=== PATIENT | female | born 1960 | race Caucasian/White ===

== ENCOUNTER 2019-03-21 17:12 | Emergency (ER) | payer MEDICAID ==
[~2019-03-21] VITALS: Ht 165.1 cm; Wt 73.0 kg
[2019-03-21] MEDS ORDERED: ONDANSETRON HCL 4MG/2ML INJ IV ONE (21:00)
[2019-03-21] MEDS ORDERED: MORPHINE SULFATE 2 MG/ML CPJ (NOT FOR IM USE) IV ONE (21:00)
[2019-03-21] MEDS ORDERED: SODIUM CHLORIDE 0.9% 1,000 ML IV ONE (21:00)
[2019-03-21] MEDS ORDERED: KETOROLAC 15MG/ML VIAL IV ONE (21:00)
[2019-03-21 21:11] LABS: BASOPHILS % 0.3 % (0.0-2.0); LYMPHOCYTES % 11.9 % (20.0-50.0); MEAN CORPUSCULAR HEMOGLOBIN 32.4 pg (28.0-32.0); MEAN CORPUSCULAR VOLUME 94.6 fL (81.0-99.0); MEAN PLATELET VOLUME 8.2 fl (7.4-10.4); MONOCYTES % 6.7 % (2.0-8.0); NEUTROPHILS % 80.1 % (40.0-76.0); PLATELET 437 x1000/uL (130-400); RED BLOOD CELL COUNT 3.39 mill/uL (4.2-5.4); RED CELL DISTRIBUTION WIDTH 13.7 % (11.6-14.6)
[2019-03-21 21:16] LABS: CHLORIDE 102 mEq/L (98-107)
[2019-03-21 21:17] LABS: PROTHROMBIN TIME 10.2 sec (9.6-11.0)
[2019-03-21 23:51] LABS: CLARITY URINE CLEAR (CLEAR); COLOR URINE YELLOW (YELLOW); KETONES URINE NEGATIVE (NEGATIVE); LEUKOCYTE ESTERASE URINE NEGATIVE (NEGATIVE); NITRITE URINE NEGATIVE (NEGATIVE); OCCULT BLOOD URINE 2+ (NEGATIVE); PH URINE 5.5 (4.5-8.0); PROTEIN URINE TRACE (NEGATIVE); SPECIFIC GRAVITY URINE 1.008 (1.005-1.030); UROBILINOGEN URINE 0.2 E.U./dL (0.2-1.0)
[2019-03-22 01:00] VITALS: BP 141/60
== END 2019-03-22 01:53 | disposition home or self-care (01) ==
LOC: ER 21:00
DX: R10.0 Acute abdomen (principal); N83.202 Unspecified ovarian cyst, left side; R19.7 Diarrhea, unspecified
CPT/HCPCS: 36415; 74176; 80053; 81003; 83690; 84484; 85025; 85610; 96361; 96374; 96375; 99284; J1885; J2270; J2405; J7030; Z7610

== ENCOUNTER 2021-03-19 18:16 | Inpatient (IN) | payer MEDICAID, OTHER ==
[~2021-03-19] VITALS: Ht 162.6 cm; Wt 79.4 kg
[2021-03-19] MEDS ORDERED: NITROGLYCERIN 0.4MG TABLET SL SL PRN (20:15)
[2021-03-19 21:05] LABS: BASOPHILS % 1.2 % (0.0-2.0); EOSINOPHILS % 5.4 % (0.0-5.0); HEMATOCRIT. 37.8 % (36.0-48.0); HEMOGLOBIN. 13.4 g/dL (12.0-16.0); LYMPHOCYTES % 22.4 % (20.0-50.0); MEAN CORPUSCULAR HEMOGLOBIN 33.3 pg (28.0-32.0); MEAN CORPUSCULAR VOLUME 93.9 fL (81.0-99.0); MEAN PLATELET VOLUME 8.8 fl (7.4-10.4); MONOCYTES % 11.9 % (2.0-8.0); NEUTROPHILS % 59.1 % (40.0-76.0); PLATELET 223 x1000/uL (130-400); RED BLOOD CELL COUNT 4.02 mill/uL (4.2-5.4); RED CELL DISTRIBUTION WIDTH 12.4 % (11.6-14.6)
[2021-03-19 21:11] LABS: CHLORIDE 102 mEq/L (98-107)
[2021-03-19 21:17] LABS: D-DIMER 0.24 mg/L FEU (<0.50); PARTIAL THROMBOPLASTIN TIME 28.2 sec (23.4-31.0); PROTHROMBIN TIME 10.5 sec (9.6-11.0)
[2021-03-19] MEDS ORDERED: ASPIRIN 325MG EC TABLET PO ONE (22:45)
[2021-03-20 08:00] VITALS: BP 109/70
[2021-03-20] MEDS ORDERED: MAGNESIUM/ALUMINUM HYDROXIDE/SIMETHICONE 30ML UDC PO PRN (10:45)
[2021-03-20] MEDS ORDERED: DOCUSATE SODIUM 100MG CAPSULE PO PRN (10:45)
[2021-03-20] MEDS ORDERED: IPRATROPIUM/ALBUTEROL 0.5-3(2.5)MG/3ML NEB HHN PRN (10:45)
[2021-03-20] MEDS ORDERED: CLONIDINE 0.1MG TABLET PO PRN (10:45)
[2021-03-20] MEDS ORDERED: ONDANSETRON HCL 4MG/2ML INJ IV PRN (10:45)
[2021-03-20] MEDS ORDERED: HYDROCODONE/ACETAMINOPHEN 5/325MG TABLET PO PRN (10:45)
[2021-03-20 11:01] VITALS: BP 109/70
[2021-03-20] MEDS ORDERED: NALOXONE HCL 0.4MG/ML VIAL IV PRN (11:30)
[2021-03-20] MEDS ORDERED: ATOR20TA PO (11:45)
[2021-03-20] MEDS ORDERED: CYAN50003 MT (11:45)
[2021-03-20] MEDS ORDERED: FISH MT (11:45)
[2021-03-20] MEDS ORDERED: OMEP20CA14 PO (11:45)
[2021-03-20] MEDS ORDERED: LISI10TA26 PO (11:45)
[2021-03-20 12:00] VITALS: BP 134/88
[2021-03-20] MEDS: OMEPRAZOLE 20MG CAPSULE EXTENDED RELEASE PO SCH ×2 (12:08→19:14)
[2021-03-20] MEDS: ENOXAPARIN 40MG/0.4ML SYR SUBCUT SCH (12:10)
[2021-03-20 14:13] LABS: CLARITY URINE CLEAR (CLEAR); COLOR URINE YELLOW (YELLOW); KETONES URINE NEGATIVE (NEGATIVE); LEUKOCYTE ESTERASE URINE NEGATIVE (NEGATIVE); NITRITE URINE NEGATIVE (NEGATIVE); OCCULT BLOOD URINE 2+ (NEGATIVE); PH URINE 6.5 (4.5-8.0); PROTEIN URINE NEGATIVE (NEGATIVE); SPECIFIC GRAVITY URINE 1.007 (1.005-1.030); UROBILINOGEN URINE 0.2 E.U./dL (0.2-1.0)
[2021-03-20 14:29] LABS: *AMPHETAMINES SCREEN URINE NEGATIVE (NEGATIVE); *BENZODIAZEPINES SCREEN URINE NEGATIVE (NEGATIVE); *COCAINE SCREEN URINE NEGATIVE (NEGATIVE); METHADONE URINE SCREEN NEGATIVE (NEGATIVE); OPIATES URINE SCREEN NEGATIVE (NEGATIVE)
[2021-03-20 14:30] LABS: CANNABINOID URINE SCREEN NEGATIVE (NEGATIVE); PHENCYCLIDINE URINE SCREEN NEGATIVE (NEGATIVE)
[2021-03-20 14:31] LABS: *BARBITURATES SCREEN URINE NEGATIVE (NEGATIVE)
[2021-03-20 16:00] VITALS: BP 112/76
[2021-03-20 16:18] VITALS: BP 112/76
[2021-03-20] MEDS: ACETAMINOPHEN 325MG TABLET PO PRN (16:25)
[2021-03-20 20:00] VITALS: BP 111/70
[2021-03-21] VITALS: BP 122/73
[2021-03-21 04:00] VITALS: BP 119/70
[2021-03-21] MEDS: OMEPRAZOLE 20MG CAPSULE EXTENDED RELEASE PO SCH (05:44)
[2021-03-21 08:00] VITALS: BP 127/77
[2021-03-21 08:13] LABS: BASOPHILS % 1.2 % (0.0-2.0); EOSINOPHILS % 5.2 % (0.0-5.0); HEMATOCRIT. 38.3 % (36.0-48.0); HEMOGLOBIN. 13.3 g/dL (12.0-16.0); LYMPHOCYTES % 16.5 % (20.0-50.0); MEAN CORPUSCULAR HEMOGLOBIN 32.7 pg (28.0-32.0); MEAN PLATELET VOLUME 9.4 fl (7.4-10.4); MONOCYTES % 9.2 % (2.0-8.0); NEUTROPHILS % 67.9 % (40.0-76.0); PLATELET 217 x1000/uL (130-400); RED BLOOD CELL COUNT 4.08 mill/uL (4.2-5.4); RED CELL DISTRIBUTION WIDTH 12.3 % (11.6-14.6)
[2021-03-21 08:35] LABS: CHLORIDE 104 mEq/L (98-107)
[2021-03-21 08:43] LABS: PHOSPHORUS 3.2 mg/dL (2.5-4.9)
[2021-03-21 08:44] LABS: LDL CHOLESTEROL 76 mg/dL (5-100)
[2021-03-21 08:46] LABS: HDL CHOLESTEROL 59 mg/dL (40-59); T4 FREE 0.93 ng/dL (0.76-1.46)
[2021-03-21] MEDS: ACETAMINOPHEN 325MG TABLET PO PRN (11:01)
[2021-03-21 12:00] VITALS: BP 105/67
[2021-03-21] MEDS: ENOXAPARIN 40MG/0.4ML SYR SUBCUT SCH (12:13)
[2021-03-21] MEDS ORDERED: DILTIAZEM HCL 5MG/ML 5ML VIAL IV PRN (13:45)
[2021-03-21] MEDS ORDERED: DIATR MEGLU/DIATRIZOATE SOLN 30ML PO SCH (14:30)
[2021-03-21] MEDS: DILTIAZEM HCL 30MG TABLET PO SCH ×2 (14:40→22:44)
[2021-03-21] MEDS ORDERED: IBUPROFEN 600MG TABLET PO PRN (14:45)
[2021-03-21] MEDS ORDERED: ONDANSETRON HCL 4MG/2ML INJ IV PRN (14:45)
[2021-03-21] MEDS ORDERED: ENOXAPARIN 40MG/0.4ML SYR SUBCUT NR (14:45)
[2021-03-21 16:00] VITALS: BP 143/83
[2021-03-21 20:00] VITALS: BP 133/84
[2021-03-21] MEDS ORDERED: KETOROLAC 10MG TABLET PO PRN (20:00)
[2021-03-21] MEDS ORDERED: KETOROLAC 30MG/ML VIAL IM PRN (20:15)
[2021-03-21] MEDS: ENOXAPARIN 80MG/0.8ML SYR SUBCUT SCH (22:44)
[2021-03-22] VITALS: BP 139/76
[2021-03-22 04:00] VITALS: BP 113/81
[2021-03-22] MEDS: DILTIAZEM HCL 30MG TABLET PO SCH ×3 (05:48→21:11)
[2021-03-22] MEDS: KETOROLAC 15MG/ML VIAL IV PRN (05:48)
[2021-03-22 07:21] LABS: BASOPHILS % 0.8 % (0.0-2.0); EOSINOPHILS % 4.1 % (0.0-5.0); HEMATOCRIT. 38.5 % (36.0-48.0); HEMOGLOBIN. 13.5 g/dL (12.0-16.0); LYMPHOCYTES % 12.8 % (20.0-50.0); MEAN CORPUSCULAR HEMOGLOBIN 33.4 pg (28.0-32.0); MEAN PLATELET VOLUME 9.9 fl (7.4-10.4); MONOCYTES % 8.9 % (2.0-8.0); NEUTROPHILS % 73.4 % (40.0-76.0); PLATELET 220 x1000/uL (130-400); RED BLOOD CELL COUNT 4.05 mill/uL (4.2-5.4); RED CELL DISTRIBUTION WIDTH 12.2 % (11.6-14.6)
[2021-03-22 07:26] LABS: CHLORIDE 103 mEq/L (98-107)
[2021-03-22 08:00] VITALS: BP 125/75
[2021-03-22] MEDS: FAMOTIDINE 20MG TABLET PO SCH ×2 (09:25→21:11)
[2021-03-22] MEDS: ENOXAPARIN 80MG/0.8ML SYR SUBCUT SCH ×2 (09:29→21:13)
[2021-03-22] MEDS ORDERED: DIATR MEGLU/DIATRIZOATE SOLN 30ML PO SCH (10:00)
[2021-03-22 12:00] VITALS: BP 131/78
[2021-03-22] MEDS ORDERED: IOHEXOL-300 100 ML BOTTLE ONE (14:01)
[2021-03-22 16:00] VITALS: BP 141/87
[2021-03-22 20:00] VITALS: BP 143/95
[2021-03-23] VITALS: BP 134/75
[2021-03-23] MEDS: KETOROLAC 15MG/ML VIAL IV PRN (02:20)
[2021-03-23 04:00] VITALS: BP 109/71
[2021-03-23] MEDS: DILTIAZEM HCL 30MG TABLET PO SCH ×2 (06:00→12:02)
[2021-03-23 08:00] VITALS: BP 138/95
[2021-03-23] MEDS: ENOXAPARIN 80MG/0.8ML SYR SUBCUT SCH (09:00)
[2021-03-23] MEDS: FAMOTIDINE 20MG TABLET PO SCH (09:18)
[2021-03-23] MEDS ORDERED: DILT30TA38 PO ×2 (11:35)
[2021-03-23] MEDS ORDERED: ACYC15OI7 TP (11:35)
[2021-03-23 11:44] VITALS: BP 138/95
[2021-03-23] MEDS ORDERED: DILT120C11 MT (11:49)
[2021-03-23] MEDS ORDERED: APIX5TAB MT (11:49)
== END 2021-03-23 12:45 | disposition home or self-care (01) | DRG 48 ==
LOC: ER 18:16 → MICUSO 21:59 → 7EST 03-20 04:49
PROVIDERS: ADMIT Internal Medicine; ATTEND Internal Medicine
DX: G56.02 Carpal tunnel syndrome, left upper limb (principal); I48.20 Chronic atrial fibrillation, unspecified; C55 Malignant neoplasm of uterus, part unspecified; E78.5 Hyperlipidemia, unspecified; E87.6 Hypokalemia; R20.2 Paresthesia of skin; I10 Essential (primary) hypertension; K21.9 Gastro-esophageal reflux disease without esophagitis; Z20.822 Contact with and (suspected) exposure to COVID-19; R20.8 Other disturbances of skin sensation; R07.89 Other chest pain; F41.9 Anxiety disorder, unspecified; R00.0 Tachycardia, unspecified; Z85.42 Personal history of malignant neoplasm of other parts of uterus; Z92.21 Personal history of antineoplastic chemotherapy; Z90.710 Acquired absence of both cervix and uterus; Z88.0 Allergy status to penicillin; Z88.1 Allergy status to other antibiotic agents
CPT/HCPCS: 36415; 70551; 71045; 74177; 80048; 80053; 80061; 80305; 81003; 82962; 83735; 83880; 84100; 84439; 84443; 84484; 85025; 85379; 87426; 93005; 93306; 93970; 97162; 97166; 99285; J1650; J1885; Q9963; Q9967

== ENCOUNTER 2024-07-21 15:24 | Emergency (ER) | payer MEDICARE, MEDICAID ==
[~2024-07-21] VITALS: Ht 165.1 cm; Wt 81.6 kg
[~2024-07-21 15:24] MED LIST: ACYC15OI7 TP; APIX5TAB MT; ATOR20TA PO; CYAN50007 MT; DILT120C11 MT; FISH MT; OMEP20CA14 PO
[2024-07-21 15:26] VITALS: O2SAT 100
[2024-07-21 15:30] VITALS: TEMP 36.6; O2SAT 97
[2024-07-21 16:41] VITALS: BP 167/96; PULSE 62; RESP 18
[2024-07-21] MEDS: IBUPROFEN 600MG TABLET PO ONE (16:41)
[2024-07-21 17:09] LABS: CLARITY URINE CLEAR (CLEAR); COLOR URINE YELLOW (YELLOW); GLUCOSE URINE NEGATIVE (NEGATIVE); KETONES URINE NEGATIVE (NEGATIVE); LEUKOCYTE ESTERASE URINE TRACE (NEGATIVE); NITRITE URINE NEGATIVE (NEGATIVE); OCCULT BLOOD URINE 2+ (NEGATIVE); PROTEIN URINE NEGATIVE (NEGATIVE); SPECIFIC GRAVITY URINE 1.005 (1.005-1.030); UROBILINOGEN URINE 0.2 E.U./dL (0.2-1.0)
[2024-07-21 17:14] LABS: BASOPHILS % 0.9 % (0.0-2.0); EOSINOPHILS % 3.3 % (0.0-5.0); HEMATOCRIT. 36.2 % (36.0-48.0); MEAN CORPUSCULAR HEMOGLOBIN 33.9 pg (28.0-32.0); MEAN CORPUSCULAR HGB CONC 35.8 g/dL (31.0-37.0); MEAN CORPUSCULAR VOLUME 94.7 fL (81.0-99.0); MEAN PLATELET VOLUME 9.3 fl (7.4-10.4); MONOCYTES % 8.7 % (2.0-8.0); NEUTROPHILS % 58.1 % (40.0-76.0); PLATELET 194 x1000/uL (130-400); RED BLOOD CELL COUNT 3.82 mill/uL (4.2-5.4); RED CELL DISTRIBUTION WIDTH 12.7 % (11.6-14.6); WHITE BLOOD COUNT 6.4 x1000/uL (4.5-11.0)
[2024-07-21 17:17] LABS: CHLORIDE 102 mEq/L (98-107); POTASSIUM 3.6 mEq/L (3.5-5.1); SODIUM 140 mEq/L (136-145)
[2024-07-21 17:18] LABS: CALCIUM 9.5 mg/dL (8.7-10.4); CARBON DIOXIDE 28 mEq/L (21-32)
[2024-07-21 17:23] LABS: CREATININE 0.9 mg/dL (0.6-1.0); GLUCOSE 100 mg/dL (70-105); UREA NITROGEN BLOOD 14 mg/dL (9-23)
[2024-07-21 17:25] LABS: ALANINE AMINOTRANSFERASE 30 IU/L (10-49); ALBUMIN 4.2 g/dL (3.2-4.8); ASPARTATE AMINOTRANSFERASE 24 IU/L (<34); BILIRUBIN DIRECT 0.2 mg/dL (<=3.0); BILIRUBIN TOTAL 0.9 mg/dL (0.1-1.0); PROTEIN TOTAL 6.5 g/dL (6.0-8.3)
[2024-07-21 17:39] LABS: BACTERIA URINE 1+; SQUAMOUS EPITHELIAL CELL URINE FEW /lpf (RARE/1+); WBC URINE 0-2 /hpf (0-2)
== END 2024-07-21 18:20 | disposition home or self-care (01) ==
LOC: ER 15:24
DX: N28.1 Cyst of kidney, acquired (principal); E78.00 Pure hypercholesterolemia, unspecified; I10 Essential (primary) hypertension; K21.9 Gastro-esophageal reflux disease without esophagitis; Z79.01 Long term (current) use of anticoagulants; Z79.899 Other long term (current) drug therapy; Z88.0 Allergy status to penicillin; Z88.1 Allergy status to other antibiotic agents; Z90.710 Acquired absence of both cervix and uterus
CPT/HCPCS: 36415; 74176; 80048; 80076; 81003; 85025; 99284